=== PATIENT | female | born 1965 | race Two or more races ===

== ENCOUNTER 2019-07-24 10:15 | Emergency (ER) | payer OTHER ==
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
[2019-07-24 13:10] VITALS: BP 108/54
== END 2019-07-24 13:10 | disposition home or self-care (01) ==
LOC: ER 10:15
DX: S60.222A Contusion of left hand, initial encounter (principal); S63.501A Unspecified sprain of right wrist, initial encounter; M54.5 Low back pain; M79.642 Pain in left hand; M25.531 Pain in right wrist; M54.6 Pain in thoracic spine; M54.9 Dorsalgia, unspecified; G89.29 Other chronic pain; Y04.0XXA Assault by unarmed brawl or fight, initial encounter; Y92.008 Other place in unspecified non-institutional (private) residence as the place of occurrence of the external cause
CPT/HCPCS: 99284; 73130; 72110; 72070; 73110; L3908